=== PATIENT | female | born 1980 | race Two or more races ===

== ENCOUNTER 2022-08-21 03:18 | Inpatient (IN) | payer OTHER ==
[~2022-08-21] VITALS: Ht 160 cm; Wt 2.7 kg
[2022-08-21] MEDS ORDERED: PRENATAL + DHA1 EAC1 PO (03:26)
[2022-08-26] MEDS ORDERED: KETO10TA2 PO (11:05)
[2022-08-26] MEDS ORDERED: OXYC1TAB9 PO (11:05)
== END 2022-08-26 12:10 | disposition home or self-care (01) | DRG 787 ==
LOC: OB/GYN 03:18 → LDR 03:18 → OB/GYN 14:21
PROVIDERS: Obstetrics & Gynecology Gynecology; ADMIT Obstetrics & Gynecology; ATTEND Obstetrics & Gynecology
PROC: BT43ZZZ Ultrasonography of Bilateral Kidneys (ICD-10-PCS; 2022-08-21)
PROC: BY4FZZZ Ultrasonography of Third Trimester, Single Fetus (ICD-10-PCS; 2022-08-21)
PROC: 3E033VJ Introduction of Other Hormone into Peripheral Vein, Percutaneous Approach (ICD-10-PCS; 2022-08-23)
PROC: 10D00Z1 Extraction of Products of Conception, Low, Open Approach (ICD-10-PCS; principal; 2022-08-23 14:00)
DX: O61.0 Failed medical induction of labor (principal); O41.03X0 Oligohydramnios, third trimester, not applicable or unspecified; O13.4 Gestational [pregnancy-induced] hypertension without significant proteinuria, complicating childbirth; O36.5930 Maternal care for other known or suspected poor fetal growth, third trimester, not applicable or unspecified; O26.843 Uterine size-date discrepancy, third trimester; O36.8130 Decreased fetal movements, third trimester, not applicable or unspecified; Z3A.36 36 weeks gestation of pregnancy; Z37.0 Single live birth; Z20.822 Contact with and (suspected) exposure to COVID-19